=== PATIENT | female | born 2005 | race Two or more races ===

== ENCOUNTER 2024-06-05 17:40 | Emergency (ER) | payer OTHER ==
[~2024-06-05] VITALS: Ht 162.6 cm; Wt 58.5 kg
[2024-06-05 18:08] LABS: *BILIRUBIN,URIN NEGATIVE (NEGATIVE); *BLOOD, URINE NEGATIVE (NEGATIVE); *CLARITY,URINE CLEAR (CLEAR); *KETONES,URINE NEGATIVE (NEGATIVE); *PROTEIN,URINE NEGATIVE (NEGATIVE); *UROBILINOGEN,URINE 0.2 E.U./dl (NORMAL); LEUKOCYTE ESTERASE ,URINE NEGATIVE (NEGATIVE); NITRITE, URINE NEGATIVE (NEGATIVE); UGLUCOSE NEGATIVE (NEGATIVE)
[2024-06-05 18:10] LABS: *COLOR,URINE LIGHT YELLOW (YELLOW)
[2024-06-05 18:11] LABS: *URINE HCG, QUAL NEGATIVE (NEGATIVE)
[2024-06-05] MEDS ORDERED: POLY17PO4 PO (19:20)
[2024-06-05 19:26] VITALS: BP 128/89; O2SAT 100
== END 2024-06-05 19:27 | disposition home or self-care (01) ==
LOC: ER 17:51
DX: K59.00 Constipation, unspecified (principal); R10.2 Pelvic and perineal pain; Z87.19 Personal history of other diseases of the digestive system; Z79.899 Other long term (current) drug therapy
CPT/HCPCS: 74018; 84703; A4606; A4663

== ENCOUNTER 2025-04-01 20:53 | Emergency (ER) | payer OTHER ==
[~2025-04-01] VITALS: Ht 160 cm; Wt 56.7 kg
[~2025-04-01 20:53] MED LIST: POLY17PO4 PO
[2025-04-01 20:59] VITALS: BP 120/78
[2025-04-01 22:19] VITALS: BP 118/71; O2SAT 99
== END 2025-04-01 21:48 | disposition home or self-care (01) ==
LOC: ER 20:55
DX: S03.02XA Dislocation of jaw, left side, initial encounter (principal); X58.XXXA Exposure to other specified factors, initial encounter; Y93.9 Activity, unspecified; Y92.89 Other specified places as the place of occurrence of the external cause; Y99.9 Unspecified external cause status
CPT/HCPCS: A4606; A4663